=== PATIENT | male | born 1950 | race Caucasian/White ===

== ENCOUNTER → 2017-03-21 | Outpatient (CLI) | payer OTHER ==
[~2017-03-21] MED LIST: IOPAMIDOL (ISOVUE-300) 100 ML BTL ONE
== END ==
LOC: CIMAGING 13:10
PROVIDERS: ATTEND Family Medicine
DX: R19.00 Intra-abdominal and pelvic swelling, mass and lump, unspecified site (principal); K40.90 Unilateral inguinal hernia, without obstruction or gangrene, not specified as recurrent
CPT/HCPCS: 72193-PO; Q9967

== ENCOUNTER 2018-08-17 07:40 | Day surgery (SDC) | payer OTHER, MEDICARE ==
[2018-08-17] MEDS ORDERED: NS 1,000 ML IV ONE (07:41)
[2018-08-17] MEDS ORDERED: FAMOTIDINE 20 MG TAB PO ONE (07:41)
[2018-08-17] MEDS ORDERED: DIAZEPAM 5 MG TAB PO ONE (07:41)
[2018-08-17] MEDS ORDERED: diphenhydrAMINE 25 MG CAP PO ONE ×2 (07:41→08:05)
[2018-08-17] MEDS ORDERED: ASPIRIN EC 325 MG TAB PO ONE ×2 (07:41→08:05)
[2018-08-17] MEDS ORDERED: DIAZEPAM 5 MG TAB ONE (08:05)
[2018-08-17] MEDS ORDERED: FAMOTIDINE 20 MG TAB ONE (08:05)
--- NOTE | 2018-08-17 08:15 | PDHPUP ---
History & Physical Update H&P update statement: This history and physical update is based on an assessment of the patient which was completed after admission or registration (within 24 hours), but prior to the surgery/procedure. H&P update: H&P reviewed & patient examined, no change in patient's condition since H&P completed H&P changes: No changes to physical exam. Pending CT surgery on August 20 for aortic and mitral valves with possible ascending aortic work.
--- NOTE | 2018-08-17 08:15 | PDPROPOC ---
Sedation Plan of Care Sedation Plan of Care: vital signs stable, mental status noted, patient educated of risks, benefits, alternatives, patient can tolerate sedation ASA Classification: ASA 2 Planned drugs: fentanyl, midazolam Mallampati Score: Class 1 Mallampati Reference Image: Patient passed 3-3-2 rule?: Yes
[2018-08-17 08:22] LABS: PLATELET COUNT 203 10^3/uL (150-400)
[2018-08-17 08:31] LABS: INR 1.01 (0.83-1.16); PROTIME(PATIENT) 13.5 SEC (12.0-15.0)
[2018-08-17] MEDS ORDERED: LIDOCAINE 1% 300 MG/30 ML SDV ONE (08:53)
[2018-08-17] MEDS ORDERED: MIDAZOLAM 2 MG/2 ML VIAL ONE ×2 (08:54)
[2018-08-17] MEDS ORDERED: IOPAMIDOL (ISOVUE-370) 150 ML BTL IV ONE (08:54)
[2018-08-17] MEDS ORDERED: fentaNYL 100 MCG/2 ML INJ ONE (08:54)
[2018-08-17] MEDS ORDERED: ONDANSETRON 4 MG/2 ML VIAL IVP PRN (10:21)
[2018-08-17] MEDS ORDERED: OXYCODONE/APAP 5/325 TAB PO PRN (10:21)
[2018-08-17] MEDS ORDERED: ATROPINE SULFATE 1 MG/10 ML SYR IVP PRN (10:21)
[2018-08-17] MEDS ORDERED: HYDROCODONE/APAP 5/325 TAB PO PRN (10:21)
[2018-08-17] MEDS ORDERED: NITROGLYCERIN 0.4 MG BTL SL PRN (10:21)
--- NOTE | 2018-08-17 10:45 | PDDXCAT ---
Diagnostic Cath Note - . Date: 08/17/18 Warp Changer: Héctor Indication: other (preoperative for AVR and MVR) - Procedure Access: right groin Procedure: left heart catheterization, coronary angiography - Materials Left Heart Cath size: 6F Left Heart Cath materials: standard multipack (JL4, JR4, pigtail), JL5.0, JR5.0 , AR mod, Kaden's R - Findings-Left Heart Catheterization LM: Short, bifurcating into the LAD and LCX vessels. No luminal irregularities were noted. Medium diameter vessel. LAD: Medium diameter vessel with a large septal edge plugger and a single principal diagonal. No luminal irregularities were noted. LAD to the apex. LCX: Medium diameter vessel with a small OM1 and a large, principal OM2 which itself trifurcates into three branch vessels. No luminal irregularities were noted. RCA: Difficult to study given the anterior and superior take off. Non selective injections with supply to PDA and VAN (dominant vessel). No luminal irregularities were noted with multiple views EDP: not assessed LVEF: not assessed Wall motion: not assessed Complications: none Estimated blood loss: <50ml Closure method: Angioseal Assessment: Patient is a 68 y/o male with pending CT surgery (aortic and mitral valves) on Monday. No critical CAD was noted on this study. LV was not assessed given the pathology to the aortic valve. Plan: Maintain scheduled surgery in three days Intervention: none
--- NOTE | 2018-08-19 14:52 | CPEKG ---
Test Reason : OPEN Blood Pressure : / mmHG Vent. Rate : 041 BPM Atrial Rate : 000 BPM P-R Int : 362 ms QRS Dur : 095 ms QT Int : 504 ms P-R-T Axes : 008 045 040 degrees QTc Int : 417 ms Sinus bradycardia Ventricular premature complex Prolonged AL interval Left ventricular hypertrophy ST depr, consider ischemia, anterolateral lds Confirmed by Javid Lobo ([id number]) on 08/19/2018 2:51:49 PM Referred By: Confirmed By:Javid Lobo
== END 2018-08-17 13:30 | disposition home or self-care (01) ==
LOC: FCATH 07:40
PROVIDERS: ATTEND Internal Medicine Cardiovascular Disease
DX: Z01.810 Encounter for preprocedural cardiovascular examination (principal); I34.0 Nonrheumatic mitral (valve) insufficiency; I35.2 Nonrheumatic aortic (valve) stenosis with insufficiency; R42 Dizziness and giddiness; R06.09 Other forms of dyspnea; I10 Essential (primary) hypertension; R01.1 Cardiac murmur, unspecified; I77.9 Disorder of arteries and arterioles, unspecified; I44.7 Left bundle-branch block, unspecified; I71.2 Thoracic aortic aneurysm, without rupture; E56.9 Vitamin deficiency, unspecified; Z98.1 Arthrodesis status
CPT/HCPCS: C1760; J1200; J1644; J2250; J3010; Q9967

== ENCOUNTER 2018-08-20 07:15 | Inpatient (IN) | payer OTHER, MEDICARE ==
[~2018-08-20 07:15] MED LIST changes: +AMINOCAPROIC ACID 5 GM/20 ML VIAL IV ONE; -IOPAMIDOL (ISOVUE-300) 100 ML BTL ONE; +MANNITOL 25% 12.5 GM/50 ML VIAL IVP ONE; +PHENYLEPHRINE HCL 50 MG in NS 250 ML IV ONE
[2018-08-20] MEDS ORDERED: CARDIOPLEGIC SOLUTION 1,052.8 ML PF ONE (08:30)
[2018-08-20] MEDS ORDERED: MUPIROCIN 2% 22 GM OINT NS ONE (10:38)
[2018-08-20] MEDS ORDERED: ceFAZolin 2 GM/DEXTROSE 100 ML IV ONE (10:38)
[2018-08-20] MEDS ORDERED: CITRATE DEXTROSE SOLN 500 ML BAG MISC ONE (10:38)
[2018-08-20] MEDS ORDERED: LIDOCAINE 1% 2 ML INJ ID PRN (10:38)
[2018-08-20] MEDS ORDERED: niCARdipine/NACL 200 ML IV ONE (10:38)
[2018-08-20] MEDS ORDERED: LR 1,000 ML IV ONE (10:39)
--- NOTE | 2018-08-20 11:30 | PDHPUP ---
History & Physical Update H&P update statement: This history and physical update is based on an assessment of the patient which was completed after admission or registration (within 24 hours), but prior to the surgery/procedure. H&P update: H&P reviewed & patient examined, changes noted (CAD excluded by [facility] ; carotid US neg for hemodynamically sig stenosis; H/H , INR 1, Na 142, K 4.5, Cr 0.9, A1c 5.6%, O+ no antibodies )
[2018-08-20] MEDS ORDERED: CALCIUM CHLORIDE 1 GM/10 ML INJ ONE (11:52)
[2018-08-20] MEDS ORDERED: MILRINONE/DEXTROSE/100 ML BAG IV ONE (11:52)
[2018-08-20] MEDS ORDERED: PROTAMINE SULFATE 50 MG/5 ML VIAL IVP ONE (11:52)
[2018-08-20] MEDS ORDERED: ALBUMIN 5% 250 ML BOTTLE IV ONE ×2 (11:52→17:21)
[2018-08-20] MEDS ORDERED: DOPamine/DEXTROSE 400 MG/250 ML BAG IV ONE (11:53)
[2018-08-20] MEDS ORDERED: CITRATE DEXTROSE SOLN 500 ML BAG ONE (11:53)
[2018-08-20] MEDS ORDERED: NA BICARBONATE 50 MEQ/50 ML VIAL ONE (11:53)
[2018-08-20] MEDS ORDERED: LIDOCAINE 2% 100 MG/5 ML SYR ONE (11:53)
[2018-08-20] MEDS ORDERED: HEPARIN 10,000 UNIT/10 ML MDV (1,000 UNIT/ML) ONE (11:53)
[2018-08-20] MEDS ORDERED: ADENOSINE 6 MG/2 ML VIAL ONE (11:54)
[2018-08-20] MEDS ORDERED: AMIODARONE HCL 150 MG/3 ML VIAL ONE (11:54)
[2018-08-20] MEDS ORDERED: niCARdipine/NACL/200 ML BAG IV ONE (11:54)
[2018-08-20] MEDS ORDERED: MAGNESIUM SULFATE 1 GM/2 ML VIAL ONE (11:54)
[2018-08-20] MEDS ORDERED: methylPREDNISolone SOD SUCC 1 GM/8 ML VIAL ONE (11:55)
[2018-08-20] MEDS ORDERED: ceFAZolin 1 GM VIAL ONE (11:55)
[2018-08-20] MEDS ORDERED: NITROGLYCERIN/D5W 50 MG/250 ML BOTTLE IV ONE (11:55)
[2018-08-20] MEDS ORDERED: MINERAL OIL 10 ML VIAL ONE (11:56)
[2018-08-20] MEDS ORDERED: VERAPAMIL 5 MG/2 ML VIAL ONE (11:56)
[2018-08-20] MEDS ORDERED: PAPAVERINE HCL 60 MG/2 ML SDV ONE (11:56)
[2018-08-20] MEDS ORDERED: MIDAZOLAM 2 MG/2 ML VIAL ONE (13:21)
[2018-08-20] MEDS ORDERED: MIDAZOLAM 2 MG/2 ML VIAL IVP ONE (13:24)
--- NOTE | 2018-08-20 13:24 | PDANEPAE ---
ANE History of Present Illness 61 yo for avr/mr ANE Past Medical History - Cardiovascular History Hx Hypertension: Yes Hx Arrhythmias: No Hx Chest Pain: No Hx Coronary Artery / Peripheral Vascular Disease: No Hx CHF / Valvular Disease: Yes Hx Palpitations: No - Pulmonary History Hx COPD: No Hx Asthma/Reactive Airway Disease: No Hx Recent Upper Respiratory Infection: No Hx Oxygen in Use at Home: No Hx Sleep Apnea: No Sleep Apnea Screening Result - Last Documented: Positive Pulmonary History Comment: MARTY triggers - Neurologic History Hx Cerebrovascular Accident: No Hx Seizures: No Hx Dementia: No Neurologic History Comment: occasional right calf, glute numbness r/t back surgery - Endocrine History Hx Diabetes: No - Renal History Hx Renal Disorders: No - Liver History Hx Hepatic Disorders: No - Neurological & Psychiatric Hx Hx Neurological and Psychiatric Disorders: No - Cancer History Hx Cancer: Yes Cancer History Comment: small skin CA removal from back - Congenital Disorder History Hx Congenital Disorders: No - GI History Hx Gastrointestinal Disorders: No - Other Health History Other Health History: wears glasses. occasional tinitus - Chronic Pain History Chronic Pain: No - Surgical History Prior Surgeries: lumbar fusion, 32018. right hernia repair ANE Review of Systems Review of Systems: - Exercise capacity METS (RN): 5 METS ANE Patient History - Allergies Allergies/Adverse Reactions: No Known Allergies Allergy (Verified 08/13/18 11:03) - Home Medications Home medications: home medication list seen and reviewed Home Medications: Acetaminophen [Tylenol 325mg (*)] 650 mg PO DAILY PRN 08/10/18 [Last Taken 08/19] Ibuprofen [Motrin (*)] 400 mg PO DAILY PRN 08/10/18 [Last Taken 3 Days Ago ~12/03] LORazepam [Ativan (*)] 0.5 mg PO HS PRN 08/10/18 [Last Taken 08/19/18 21:00] amLODIPine BESYLATE [Amlodipine Besylate] 5 mg PO DAILY 08/10/18 [Last Taken 01/31 07:30] - NPO status NPO Status: no food or drink >8 hours NPO Since - Liquids (Date): 08/20/18 NPO Since - Liquids (Time): 07:00 NPO Since - Solids (Date): 08/19/18 NPO Since - Solids (Time): 19:00 - Anes Hx Anes Hx: no prior problems - Smoking Hx Smoking Status: Never smoked - Family Anes Hx Family Hx Anesthesia Complications: none ANE Labs/Vital Signs - Vital Signs Blood Pressure: 170/92 Heart Rate: 41 Respiratory Rate: 14 O2 Sat (%): 97 Height: 6 ft Weight: 74.843 kg ANE Physical Exam - Airway Neck exam: FROM Mallampati Score: Class 2 Mouth exam: normal dental/mouth exam - Pulmonary Pulmonary: no respiratory distress - Cardiovascular Cardiovascular: regular rate and rhythym - ASA Status ASA Status: III ANE Anesthesia Plan Anesthesia Plan: general endotracheal anesthesia Lines/Monitors: arterial line, central line, EVANGELINA
[2018-08-20] MEDS ORDERED: PROPOFOL/EMULSION 500 MG/50 ML BOTTLE IV ONE (13:30)
[2018-08-20] MEDS ORDERED: fentaNYL 100 MCG/2 ML INJ ONE (13:30)
[2018-08-20] MEDS ORDERED: REMIFENTANIL HCL 1 MG VIAL ONE (13:30)
[2018-08-20] MEDS ORDERED: DEXMEDETOMIDINE HCL 400 MCG in NS 100 ML IV SCH (13:30)
[2018-08-20] MEDS ORDERED: ROCURONIUM 100 MG/10 ML VIAL ONE (13:31)
[2018-08-20] MEDS ORDERED: DEXAMETHASONE 4 MG/ML VIAL ONE (13:34)
[2018-08-20] MEDS ORDERED: NOREPINEPHRINE BITARTRATE 16 MG in NS 250 ML IV ONE (14:00)
[2018-08-20] MEDS ORDERED: INSULIN REGULAR HUMAN 100 UNIT in NS 100 ML IV ONE (14:00)
[2018-08-20] MEDS ORDERED: SODIUM BICARBONATE 20 MEQ, LIDOCAINE 1% 10 ML in NORMOSOL-R 1,000 ML MISC ONE (14:00)
[2018-08-20] MEDS ORDERED: ONDANSETRON 4 MG/2 ML VIAL ONE (16:51)
[2018-08-20] MEDS ORDERED: SUGAMMADEX SODIUM 200 MG/2 ML VIAL IVP ONE (16:51)
[2018-08-20] MEDS ORDERED: BISACODYL 10 MG SUPP PR PRN (17:25)
[2018-08-20] MEDS ORDERED: LACTULOSE 20 GM/30 ML UDCUP PO PRN (17:25)
[2018-08-20] MEDS ORDERED: ONDANSETRON 4 MG/2 ML VIAL IVP PRN (17:25)
[2018-08-20] MEDS ORDERED: POTASSIUM Cl (KCl) 50 ML IV PRN (17:25)
[2018-08-20] MEDS ORDERED: niCARdipine/NACL 200 ML IV PRN (17:25)
[2018-08-20] MEDS ORDERED: POLYETHYLENE GLYCOL 3350 17 GM PKT PO PRN (17:25)
[2018-08-20] MEDS ORDERED: METOCLOPRAMIDE 10 MG/2 ML VIAL IVP PRN (17:25)
[2018-08-20] MEDS ORDERED: SODIUM CL NASAL 45 ML BTL EACHNARE PRN (17:25)
[2018-08-20] MEDS ORDERED: MEPERIDINE 25 MG/0.5 ML AMP IVP PRN (17:25)
[2018-08-20] MEDS ORDERED: fentaNYL 100 MCG/2 ML INJ IVP PRN (17:25)
[2018-08-20] MEDS ORDERED: MAGNESIUM HYDROXIDE 30 ML UDCUP PO PRN (17:25)
[2018-08-20] MEDS ORDERED: D50W 25 GM/50 ML SYR IVP PRN (17:25)
[2018-08-20] MEDS ORDERED: ONDANSETRON DISINTEGRATING 4 MG TAB PO PRN (17:25)
[2018-08-20] MEDS ORDERED: PANTOPRAZOLE SODIUM 40 MG VIAL IVP ONE (17:25)
[2018-08-20] MEDS ORDERED: INSULIN REGULAR HUMAN 100 UNIT in NS 100 ML IV SCH (17:30)
[2018-08-20] MEDS ORDERED: NS 1,000 ML IV SCH (17:30)
[2018-08-20] MEDS: KETOROLAC 15 MG/1 ML SDV IVP SCH ×2 (18:20→23:00)
--- NOTE | 2018-08-20 18:35 | GOP ---
DATE OF OPERATION: 08/20/2018 SURGEON: Javid Alonso DO SUPERVISOR [employer] PRODUCTION: Spring Harris, PAC. ANESTHESIOLOGIST: Lexie Doty MD. PREOPERATIVE DIAGNOSIS: 1. Severe mitral insufficiency. 2. Moderate severe aortic insufficiency. 3. Dilated ascending aorta. 4. History of recurrent palpitations, etiology uncertain. POSTOPERATIVE DIAGNOSIS: 1. Severe mitral insufficiency. 2. Moderate severe aortic insufficiency. 3. Dilated ascending aorta. 4. History of recurrent palpitations, etiology uncertain. PROCEDURE PERFORMED: 1. Aortic valve replacement with a #23 Inspiris aortic valve. 2. Mitral valve annuloplasty with a #30 Physio annuloplasty ring. 3. Bilateral pulmonary vein ablation. 4. Ligation of left atrial appendage with AtriClip. FINDINGS: Patient presented with decreased exercise tolerance, dyspnea on exertion, and evidence of dilating left ventricle and left atrium with uvxshlnw-[id number] mitral insufficiency and moderate-to- severe aortic insufficiency with a 4.5 cm ascending aorta on CAT scan. He was consented for surgery because of his frequent palpitations, although AFib was not documented in his markedly enlarged left atrium. We discussed the benefits of a pulmonary vein ablation, although strict criteria have not be en met. He was very adamant about trying to avoid atrial fibrillation, and that he had friends who h ad complications related to AFib and anticoagulants. For that reason, we agreed to proceed with PVI since it added no risk. DESCRIPTION OF PROCEDURE: He was consented for surgery, brought to the operating room, intubated. M onitoring lines were placed. He was prepped and draped in sterile classical manner. Sternotomy was performed. He was heparinized. Upon entering the sternum, he went into atrial fib with a slow ventr icular response. It should be noted the sinus rate was in the 30s upon entering the OR in sinus with frequent PACs. He was heparinized, cannulated in the transverse arch and bicaval cannulas. A retro grade catheter was placed as well. Antegrade cardioplegia was administered in a retrograde fashion b ecause of his aortic insufficiency using [place] Nido solution and topical hypothermia and systemic cooli ng. We then excised the ascending aorta, which was normal thickness but 4.6 cm in its widest segment at the sinotubular junction. He had some dilatation to his non coronary sinus and that was planned to be excised as part of the procedure. We excised down to within a centimeter of the anulus, leavin g area for the coronary buttons and excluding most of the sinus. The left and right were relatively normal in dimensions. He had a trileaflet valve that was heavily fenestrated. It was excised. I then proceeded with right and left pulmonary vein ablation with greater than 10 lesion sets perform ed with 3 overlapping, the 3rd of each one being less than 5 seconds in duration. I then placed a 35 mm AtriClip across the base of the left atrial appendage and excised the tip to confirm complete occ lusion. We then exposed the mitral valve through the right superior pulmonary vein. A retractor was placed. The valve was inspected. There was no elongation of any segment; however, he had significa nt posterior dilation with central regurgitation. Circumferential annuloplasty sutures were placed. We then sized the patient for a 30 mm ring, which was secured in place. A cleft between P2 and P3 w as closed with a single 5-0 Prolene [id number]-[id number] suture. Distention of the ventricle revealed no regurgitation. A methylene blue test revealed 8-10 mm of coaptation surface between anterior and pos terior leaflets. The left atrium was then closed. CO2 had been infused throughout the procedure. W e then placed a 23 mm Inspiris valve in a supra-annular position utilizing Cor-Knots. We then sized the patient for a 26 mm Hemashield graft which was fashioned in a bevel and sewn end-to-end between t he sinotubular junction at the base of the innominate artery. BioGlue was applied. The cross-clamp was then removed with suction on the ascending aortic vent in Trendelenburg and with an LV sump previ ously placed. When no further air was identified, he was weaned from bypass in Trendelenburg. An ec ho revealed excellent coaptation with no mitral regurgitation, preserved biventricular function, and good valvular function of the aortic valve without perivalvular leak. The heparin was reversed with protamine. The cannula was removed and oversewn. Two ventricular pacing wires, 2 mediastinal drains were placed. The thymic fat and pericardium were closed. Chest was closed in standard fashion. e patient was returned to ICU in stable condition. /[id number]/MODL
[2018-08-20] MEDS: ALBUMIN 5% 250 ML IV PRN (19:13)
[2018-08-20] MEDS: HYDROCODONE/APAP 5/325 TAB PO PRN (20:14)
[2018-08-20] MEDS: MUPIROCIN 2% 22 GM OINT NS SCH (20:29)
[2018-08-20] MEDS: ceFAZolin 2 GM/DEXTROSE 100 ML IV SCH (21:11)
[2018-08-20] MEDS: CEPACOL LOZENGE PO PRN (21:11)
[2018-08-21] MEDS: ALBUMIN 5% 250 ML IV PRN (00:09)
[2018-08-21] MEDS: HYDROCODONE/APAP 5/325 TAB PO PRN ×2 (00:55→05:19)
[2018-08-21 03:49] LABS: PLATELET COUNT 116 10^3/uL (150-400)
[2018-08-21 03:57] LABS: INR 1.31 (0.83-1.16); PROTIME(PATIENT) 16.5 SEC (12.0-15.0)
[2018-08-21] MEDS: KETOROLAC 15 MG/1 ML SDV IVP SCH ×4 (05:22→23:47)
[2018-08-21] MEDS: ceFAZolin 2 GM/DEXTROSE 100 ML IV SCH ×3 (05:22→21:13)
[2018-08-21] MEDS: HEPARIN 5,000 UNIT/0.5 ML INJ SC SCH ×3 (05:22→21:13)
[2018-08-21] MEDS ORDERED: ALBUMIN 5% 500 ML BOTTLE IV ONE (06:21)
[2018-08-21] MEDS ORDERED: ALBUMIN 5% 500 ML IV ONE (07:00)
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
--- NOTE | 2018-08-21 07:58 | POSTANESTH ---
Post Anesthetic Evaluation Cardiovascular Status: Normal, Stable Respiratory Status: Tx Decrease in SpO2 Level of Consciousness/Mental Status: Can Participate in Eval Pain Control: Adequate, Prn Tx Ordered Nausea/Vomiting Control: Adequate, Prn Tx Ordered Complications Possibly Related to Anesthesia: None Noted
--- NOTE | 2018-08-21 09:01 | ASMTCMCOM ---
CM Note CM Note Notes: 68yo male admitted for AAA, MR, AR, Afib, HTN. Has a Hx of lumbar fusion. Patient had a MVR, AVR, AAAR. Patient lives with his in [place]. Therapies to eval. May go to Cardiac Rehab on discharge. Date Signed: 08/21/2018 09:00 AM Electronically Signed By:Lily Rosenthal LCSW
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
[2018-08-21] MEDS: ASPIRIN 81 MG CHEWABLE TAB PO SCH (09:20)
[2018-08-21] MEDS: traMADol 50 MG TAB PO PRN (09:20)
[2018-08-21] MEDS: PANTOPRAZOLE SODIUM 40 MG TAB PO SCH (09:20)
[2018-08-21] MEDS: MUPIROCIN 2% 22 GM OINT NS SCH ×2 (10:24→21:18)
--- NOTE | 2018-08-21 11:35 | PDCARPN ---
Cardiology Progress Note Chief Complaint: None Assessment/Plan: Assessment: sp maze, MV repair, AV replacement Junctional rhythm Plan: POD #1, in junctional rhythm requiring intermittent pacing Plan to observe 48-72 h, if no improvement or if HD unstable, consider dual chamber pacemaker prior to dc. Discussed with pt and re. this. Will follow 08/21/18 11:33 Subjective: Asked to see pt d/t junctional rhythm post CTS Reviewed/Discussed With: family, multidisciplinary team Time Spent with Patient: greater than 25 minutes Time Spent with Patient: Greater than 25 minutes spent on this patients care, greater than 50% of time spent counseling, educating, and coordinating care regarding the above mentioned plan. Objective: Vital Signs (8 Hrs) Temp Pulse Resp BP Pulse Ox 08/21/18 10:00 41 L 16 84/47 L 98 08/21/18 09:00 52 L 17 80/49 L 100 08/21/18 08:00 36.6 C 90 20 105/74 99 08/21/18 07:00 90 14 83/49 L 99 08/21/18 06:00 90 16 83/55 L 97 08/21/18 05:00 90 15 104/73 98 08/21/18 04:00 90 14 101/69 99 Intake/Output (24 Hrs) 08/19/18 08/20/18 08/21/18 11:59 11:59 11:59 Intake Total 2065 Output Total 1555 Balance 510 Intake: Oral (ml) 500 IV Intake (ml) 1065 IV Infused (ml) 500 Albumin 5% 500 ml @ 0 mls 500 /hr IV ONCE ONE Rx#: [id number] Output: Urine (ml) 825 Catheter 825 Chest Tube Output (ml) 730 Location 1 730 Other: Weight 74.843 kg 77 kg Result Diagrams: 08/21/18 03:30 08/21/18 03:30 Telemetry: Junctional rhythm 40-45 bpm ICD10 Worksheet Patient Problems: Problems Problem Status Onset Status post circumferential ablation of pulmonary vein Acute ~08/20/18 S/P ascending aortic replacement Acute ~08/20/18 S/P aortic valve replacement with bioprosthetic valve Acute ~08/20/18 Status post mitral valve annuloplasty Acute ~08/20/18 Paroxysmal atrial fibrillation Acute Ascending aorta dilatation Chronic Mitral and aortic valve regurgitation Chronic
[2018-08-21] MEDS ORDERED: ALBUMIN 5% 250 ML BOTTLE IV ONE (13:16)
[2018-08-21] MEDS ORDERED: ALBUMIN 5% 250 ML IV ONE (13:30)
[2018-08-21] MEDS ORDERED: WARFARIN SODIUM 2.5 MG TAB PO SCH (16:00)
[2018-08-21] MEDS: SENNOSIDES/DOCUSATE SODIUM TAB PO SCH (21:13)
[2018-08-22] MEDS: HEPARIN 5,000 UNIT/0.5 ML INJ SC SCH (05:53)
[2018-08-22] MEDS: ceFAZolin 2 GM/DEXTROSE 100 ML IV SCH (05:53)
[2018-08-22] MEDS: traMADol 50 MG TAB PO PRN ×2 (05:58→14:57)
[2018-08-22 06:10] LABS: INR 1.4 (0.83-1.16); PROTIME(PATIENT) 17.3 SEC (12.0-15.0)
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
[2018-08-22] MEDS: CEPACOL LOZENGE PO PRN (07:24)
[2018-08-22] MEDS: ACETAMINOPHEN 325 MG TAB PO PRN ×3 (08:59→22:41)
[2018-08-22] MEDS: SENNOSIDES/DOCUSATE SODIUM TAB PO SCH ×2 (09:00→22:41)
[2018-08-22] MEDS: ASPIRIN 81 MG CHEWABLE TAB PO SCH (09:00)
[2018-08-22] MEDS: MUPIROCIN 2% 22 GM OINT NS SCH (09:01)
[2018-08-22] MEDS: PANTOPRAZOLE SODIUM 40 MG TAB PO SCH (09:03)
--- NOTE | 2018-08-22 10:40 | PDCARPN ---
Cardiology Progress Note Chief Complaint: POD day 2 s/p AVR with post-op junctional rhythm 40-55bpm. Assessment/Plan: Assessment: Mr. Rodriguez remains in junctional rhythm. HRs 55-62bpm since starting Dopamine this morning. Sp02 91% on 4L supplemental 02. He continues to note fatigue and nausea today. He has been unable to ambulate due to lightheadedness during several previous attempts. Plan: 1. EP service will continue to follow 2. Will continue to monitor underlying rhythm and will reevaluate need for PPM implant tomorrow 08/23. 08/22/18 10:38 08/22/18 10:42 Subjective: Patient reports persistent fatigue and intermittent nausea today. Reviewed/Discussed With: multidisciplinary team Objective: Vital Signs (8 Hrs) Temp Pulse Resp BP Pulse Ox 08/22/18 10:00 57 L 18 108/63 96 08/22/18 09:00 58 L 14 99/60 L 93 08/22/18 08:00 36.7 C 60 15 114/62 91 L 08/22/18 07:00 54 L 12 94/57 L 92 08/22/18 06:00 51 L 14 96/53 L 99 08/22/18 04:00 60 14 93/62 L 99 Intake/Output (24 Hrs) 08/21/18 08/22/18 08/23/18 05:59 05:59 05:59 Intake Total 1565 1350 Output Total 1555 300 Balance 10 1050 Intake: Oral (ml) 500 850 IV Intake (ml) 1065 IV Infused (ml) 500 Albumin 5% 500 ml @ 0 mls 500 /hr IV ONCE ONE Rx#: [id number] Output: Urine (ml) 825 Catheter 825 Chest Tube Output (ml) 730 300 Location 1 730 150 Location 2 150 Other: Weight 74.843 kg 77 kg Number of Voids Toilet 2 Result Diagrams: 08/22/18 05:55 08/22/18 05:55 Telemetry: Junctional rhythm 40-50bpm before starting Dopamine this morning, 55-62bpm since starting Dopamine. ICD10 Worksheet Patient Problems: Problems Problem Status Onset Paroxysmal atrial fibrillation Acute S/P aortic valve replacement with bioprosthetic valve Acute ~08/20/18 S/P ascending aortic replacement Acute ~08/20/18 Status post circumferential ablation of pulmonary vein Acute ~08/20/18 Status post mitral valve annuloplasty Acute ~08/20/18 Ascending aorta dilatation Chronic Mitral and aortic valve regurgitation Chronic
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
[2018-08-23] MEDS: ACETAMINOPHEN 325 MG TAB PO PRN ×2 (05:13→18:26)
[2018-08-23 05:38] LABS: INR 1.29 (0.83-1.16); PROTIME(PATIENT) 16.3 SEC (12.0-15.0)
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
--- NOTE | 2018-08-23 09:35 | PDCARPN ---
Cardiology Progress Note Chief Complaint: Junctional rhythm s/p AVR POD 3 Assessment/Plan: Assessment: Pacing via epicardial leads at 80bpm this morning. P-waves noted on telemetry, underlying rhythm demonstrated Wenckebach at 43-47bpm. Pacing rate decreased to 60bpm. Mr. Rodriguez was able to walk twice yesterday and reports feeling fairly well this morning aside from a mild persistent headache. Plan: 1. EP service will continue to follow. 2. Will continue to monitor underlying rhythm and will reevaluate need for PPM implant tomorrow 08/24. 08/23/18 09:31 Subjective: Mild headache this morning. Improved compared to yesterday. Reviewed/Discussed With: multidisciplinary team Objective: Vital Signs (8 Hrs) Pulse Resp BP Pulse Ox 08/23/18 06:00 52 L 16 104/62 97 08/23/18 04:00 53 L 12 108/64 99 08/23/18 02:00 53 L 16 110/68 99 Intake/Output (24 Hrs) 08/22/18 08/23/18 08/24/18 05:59 05:59 05:59 Intake Total 1350 1517 Output Total 300 240 Balance 1050 1277 Intake: Oral (ml) 850 1300 IV Infused (ml) 500 217 Albumin 5% 500 ml @ 0 mls 500 /hr IV ONCE ONE Rx#: [id number] DOPamine/DEXTROSE 250 ml 217 @ 2.5 MCG/KG/MIN 7.219 mls/hr IV CONT CRISSY Rx#: [id number] Output: Chest Tube Output (ml) 300 240 Location 1 150 130 Location 2 150 110 Other: Weight 77 kg 77.1 kg Number of Voids Toilet 2 1 Result Diagrams: 08/22/18 05:55 08/23/18 05:15 Telemetry: Initially, paced rhythm at 80bpm with intermittent p-waves noted on telemetry. Underlying rhythm Wenckebach. Pacing rate decreased to 80bpm. ICD10 Worksheet Patient Problems: Problems Problem Status Onset Paroxysmal atrial fibrillation Acute S/P aortic valve replacement with bioprosthetic valve Acute ~08/20/18 S/P ascending aortic replacement Acute ~08/20/18 Status post circumferential ablation of pulmonary vein Acute ~08/20/18 Status post mitral valve annuloplasty Acute ~08/20/18 Ascending aorta dilatation Chronic Mitral and aortic valve regurgitation Chronic
[2018-08-23] MEDS: traMADol 50 MG TAB PO PRN (09:54)
[2018-08-23] MEDS: PANTOPRAZOLE SODIUM 40 MG TAB PO SCH (09:54)
[2018-08-23] MEDS: SENNOSIDES/DOCUSATE SODIUM TAB PO SCH ×2 (09:55→20:09)
[2018-08-23] MEDS: ASPIRIN 81 MG CHEWABLE TAB PO SCH (09:55)
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
[2018-08-24 06:33] LABS: INR 1.28 (0.83-1.16); PROTIME(PATIENT) 16.2 SEC (12.0-15.0)
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
[2018-08-24] MEDS: ACETAMINOPHEN 325 MG TAB PO PRN ×3 (09:13→20:14)
[2018-08-24] MEDS: ASPIRIN 81 MG CHEWABLE TAB PO SCH (09:14)
[2018-08-24] MEDS: PANTOPRAZOLE SODIUM 40 MG TAB PO SCH (09:14)
[2018-08-24] MEDS: SENNOSIDES/DOCUSATE SODIUM TAB PO SCH ×2 (09:14→20:14)
--- NOTE | 2018-08-24 13:10 | ASMTCMCOM ---
CM Note CM Note Notes: Patient continues to make clinical progress. The plan is for pacemaker placement Monday 08/27. Therapies will continue to work with him, and Case Management will continue to evaluate his discharge needs. Ro is supportive and at bedside. Date Signed: 08/24/2018 01:10 PM Electronically Signed By:Margie Stockton RN
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
[2018-08-24] MEDS ORDERED: LORazepam 0.5 MG TAB PO PRN (19:12)
[2018-08-25] MEDS: SENNOSIDES/DOCUSATE SODIUM TAB PO SCH ×2 (07:24→21:00)
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
[2018-08-25] MEDS: ASPIRIN 81 MG CHEWABLE TAB PO SCH (09:40)
[2018-08-25] MEDS: PANTOPRAZOLE SODIUM 40 MG TAB PO SCH (09:40)
[2018-08-25] MEDS: ACETAMINOPHEN 325 MG TAB PO PRN ×2 (09:45→15:20)
[2018-08-25 09:47] LABS: PLATELET COUNT 178 10^3/uL (150-400)
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
[2018-08-26] MEDS: ACETAMINOPHEN 325 MG TAB PO PRN ×2 (06:20→12:31)
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
[2018-08-26] MEDS: SENNOSIDES/DOCUSATE SODIUM TAB PO SCH ×2 (08:20→20:36)
[2018-08-26] MEDS: ASPIRIN 81 MG CHEWABLE TAB PO SCH (08:21)
[2018-08-26] MEDS: PANTOPRAZOLE SODIUM 40 MG TAB PO SCH (08:21)
--- NOTE | 2018-08-26 10:19 | PDCARPN ---
Cardiology Progress Note Assessment/Plan: Status post bioprosthetic AVR and MV repair 08/20; now w/ CHB; no AV conduction w / pacer rate temporarily turned down to 50 bpm this a.m. - Will input orders for dual chamber pacer implant w/ Dr. Duarte for tomorrow. Time TBD. 08/26/18 10:23 Subjective: Trouble sleeping but o/w OK. Objective: Vital Signs (8 Hrs) Temp Pulse Resp BP Pulse Ox 08/26/18 08:00 36.6 C 80 20 106/69 93 08/26/18 06:00 80 20 136/91 H 94 08/26/18 04:00 36.2 C 80 18 101/71 96 Intake/Output (24 Hrs) 08/25/18 08/26/18 08/27/18 05:59 05:59 05:59 Intake Total 1450 1375 480 Output Total 625 Balance 825 1375 480 Intake: Oral (ml) 1450 1375 480 Output: Urine (ml) 625 Toilet 625 Other: Weight 78.381 kg Number of Voids Toilet 3 1 1 Number of Stools Toilet 2 1 Result Diagrams: 08/25/18 09:00 08/25/18 09:00 - Physical Exam Constitutional: no apparent distress Eyes: anicteric sclera Ears, Nose, Mouth, Throat: moist mucous membranes Cardiovascular: regular rate and rhythm, no murmurs, no gallops Respiratory: clear to auscultate bilat Gastrointestinal: normoactive bowel sounds, no tenderness, no masses Skin: no edema Psychiatric: not anxious ICD10 Worksheet Patient Problems: Problems Problem Status Onset Paroxysmal atrial fibrillation Acute S/P aortic valve replacement with bioprosthetic valve Acute ~08/20/18 S/P ascending aortic replacement Acute ~08/20/18 Status post circumferential ablation of pulmonary vein Acute ~08/20/18 Status post mitral valve annuloplasty Acute ~08/20/18 Ascending aorta dilatation Chronic Mitral and aortic valve regurgitation Chronic
[2018-08-26] MEDS: CEPACOL LOZENGE PO PRN ×2 (12:33→20:58)
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
[2018-08-26] MEDS: diphenhydrAMINE 25 MG CAP PO PRN (21:45)
[2018-08-27 05:08] LABS: INR 1.18 (0.83-1.16); PROTIME(PATIENT) 15.2 SEC (12.0-15.0)
[2018-08-27] MEDS ORDERED: BACITRACIN IRRIGATION/NS 50,000 UNITS/1,000 ML BTL IRR ONE ×2 (06:00→10:28)
[2018-08-27] MEDS ORDERED: ceFAZolin 2 GM/DEXTROSE 100 ML IV ONE ×2 (06:00→10:28)
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
[2018-08-27] MEDS: PANTOPRAZOLE SODIUM 40 MG TAB PO SCH (09:12)
[2018-08-27] MEDS: ASPIRIN 81 MG CHEWABLE TAB PO SCH (09:12)
[2018-08-27] MEDS: SENNOSIDES/DOCUSATE SODIUM TAB PO SCH ×2 (09:13→20:13)
[2018-08-27] MEDS ORDERED: LIDOCAINE 1% 300 MG/30 ML SDV ONE ×2 (09:57→13:01)
--- NOTE | 2018-08-27 10:28 | PDGENHP ---
History & Physical Chief Complaint: bradycardia Relevant Physical Exam: s1s2 rrr cta ao3 Cardiorespiratory Assessment: bradycardia post maze and mv repair. for pacemaker. Risks reviewed with patient and . [place] [facility] - they plan on assessing L pleural effusion with US today
--- NOTE | 2018-08-27 12:30 | ASMTCMCOM ---
CM Note CM Note Notes: Patient to get a pacemaker today. At this time PT recommending HC, OT = HM. Date Signed: 08/27/2018 12:29 PM Electronically Signed By:Lily Rosenthal LCSW
[2018-08-27] MEDS ORDERED: IOPAMIDOL (ISOVUE-300) 100 ML BTL ONE (13:01)
[2018-08-27] MEDS ORDERED: BUPIVACAINE 0.75% 10 ML SDV ONE (13:01)
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
--- NOTE | 2018-08-27 13:11 | POSTANESTH ---
Post Anesthetic Evaluation Cardiovascular Status: Normal, Stable Respiratory Status: Normal, Stable Level of Consciousness/Mental Status: Can Participate in Eval, Mildly Sleepy, Arousable Pain Control: Adequate, Prn Tx Ordered Nausea/Vomiting Control: Adequate, Prn Tx Ordered Complications Possibly Related to Anesthesia: None Noted
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
[2018-08-27] MEDS ORDERED: PROPOFOL/EMULSION 500 MG/50 ML BOTTLE IV ONE (13:17)
[2018-08-27] MEDS ORDERED: LIDOCAINE 2% 2 ML INJ ONE (13:17)
[2018-08-27] MEDS ORDERED: fentaNYL 100 MCG/2 ML INJ ONE (13:17)
[2018-08-27] MEDS ORDERED: ePHEDrine SULFATE 25 MG/5 ML SYR ONE ×2 (13:35→14:14)
[2018-08-27] MEDS ORDERED: PROPOFOL 200 MG/20 ML VIAL ONE (14:12)
[2018-08-27] MEDS ORDERED: ACETAMINOPHEN 500 MG TAB PO PRN (14:33)
[2018-08-27] MEDS ORDERED: ONDANSETRON 4 MG/2 ML VIAL IVP PRN (14:33)
[2018-08-27] MEDS ORDERED: fentaNYL 100 MCG/2 ML INJ IVP PRN (14:33)
[2018-08-27] MEDS ORDERED: NALOXONE HCL 0.4 MG/ML INJ IVP PRN (14:33)
[2018-08-27] MEDS ORDERED: LR 250 ML IV PRN (14:33)
[2018-08-27] MEDS ORDERED: ALBUTEROL 3 ML DEYVIAL IH PRN (14:33)
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
--- NOTE | 2018-08-27 15:32 | CPEKG ---
Test Reason : OPEN Blood Pressure : / mmHG Vent. Rate : 073 BPM Atrial Rate : 000 BPM P-R Int : 059 ms QRS Dur : 162 ms QT Int : 458 ms P-R-T Axes : -85 -40 088 degrees QTc Int : 505 ms A-V dual-paced rhythm with some inhibition Confirmed by Brayan Clark ([id number]) on 08/27/2018 3:32:07 PM Referred By: Confirmed By:Brayan Clark
[2018-08-27] MEDS ORDERED: WARFARIN SODIUM 5 MG TAB PO ONE (16:00)
[2018-08-27] MEDS: ACETAMINOPHEN 325 MG TAB PO PRN (18:06)
[2018-08-27] MEDS: CEPACOL LOZENGE PO PRN (20:13)
[2018-08-27] MEDS: diphenhydrAMINE 25 MG CAP PO PRN (21:53)
[2018-08-27] MEDS: HYDROCODONE/APAP 5/325 TAB PO PRN (21:53)
[2018-08-28] MEDS: HYDROCODONE/APAP 5/325 TAB PO PRN (02:09)
[2018-08-28 05:09] LABS: PLATELET COUNT 261 10^3/uL (150-400)
[2018-08-28 05:12] LABS: INR 1.26 (0.83-1.16)
[2018-08-28] MEDS: traMADol 50 MG TAB PO PRN (07:16)
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
--- NOTE | 2018-08-28 08:29 | PDCARPN ---
Cardiology Progress Note Chief Complaint: s/p dual-chamber PPM yesterday 08/28 Assessment/Plan: Assessment: 1. Status post implant of a dual-chamber PPM yesterday 08/28. Dressing is clean and dry. No hematoma, redness, swelling, or oozing to the PPM pocket. Mild tenderness. 2. POD D#8 s/p AVR and ascending aorta repair, MV annuplasty, and Maze 3. Pleural effusion - thoracentesis yesterday. CXR pending this morning. Plan: 1. Likely discharge home today pending CTS clearance and CXR results this morning. 2. Follow-up in device clinic in 1 week. 08/28/18 08:30 Subjective: Discomfort to left pectoral incision last night, markedly improved this morning. Otherwise, patent reports feeling "much better" overall. Reviewed/Discussed With: multidisciplinary team Time Spent with Patient: greater than 25 minutes Time Spent with Patient: Greater than 25 minutes spent on this patients care, greater than 50% of time spent counseling, educating, and coordinating care regarding the above mentioned plan. Objective: Vital Signs (8 Hrs) Temp Pulse Resp BP Pulse Ox 08/28/18 08:00 36.5 C 18 109/57 L 95 08/28/18 04:00 37.1 C 71 16 117/77 89 L Intake/Output (24 Hrs) 08/27/18 08/28/18 08/29/18 05:59 05:59 05:59 Intake Total 1448 2850 Output Total 1950 175 Balance 1448 900 -175 Intake: Oral (ml) 1448 2150 IV Intake (ml) 700 Output: Urine (ml) 600 175 Urinal 600 175 Thoracentesis 1350 Other: Weight 78.381 kg 76.7 kg Number of Voids Toilet 2 1 Urinal 1 1 Number of Stools Toilet 1 1 Result Diagrams: 08/28/18 03:20 08/28/18 03:20 Telemetry: A-V paced rhythm on telemetry overnight ICD10 Worksheet Patient Problems: Problems Problem Status Onset Paroxysmal atrial fibrillation Acute S/P aortic valve replacement with bioprosthetic valve Acute ~08/20/18 S/P ascending aortic replacement Acute ~08/20/18 Status post circumferential ablation of pulmonary vein Acute ~08/20/18 Status post mitral valve annuloplasty Acute ~11/05/18 Ascending aorta dilatation Chronic Mitral and aortic valve regurgitation Chronic
[2018-08-28] MEDS ORDERED: IBUPROFEN 200 MG TAB PO PRN (08:36)
[2018-08-28] MEDS: ASPIRIN 81 MG CHEWABLE TAB PO SCH (09:25)
[2018-08-28] MEDS: SENNOSIDES/DOCUSATE SODIUM TAB PO SCH (09:25)
[2018-08-28] MEDS: PANTOPRAZOLE SODIUM 40 MG TAB PO SCH (09:26)
--- NOTE | 2018-08-28 11:22 | CPEKG ---
Test Reason : OPEN Blood Pressure : / mmHG Vent. Rate : 070 BPM Atrial Rate : 070 BPM P-R Int : 199 ms QRS Dur : 157 ms QT Int : 449 ms P-R-T Axes : 105 -68 085 degrees QTc Int : 485 ms Atrial-ventricular dual-paced rhythm Confirmed by Brayan Clark ([id number]) on 08/28/2018 11:22:17 AM Referred By: Confirmed By:Brayan Clark
[2018-08-28 11:28] VITALS: BP 99/69
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
--- NOTE | 2018-08-28 12:37 | ASDISCHSUM ---
Discharge Information Plan Status:Home with No Needs Medically Cleared to Leave: Discharge Date: CM D/C Disposition:Home, Routine, Self-Care ADT D/C Disposition:Home, Routine, Self-Care Projected Discharge Date: Transportation at D/C:Family Discharge Delay Reason: Follow-Up Date: Discharge Slot: Final Diagnosis: Placement Information Patient Contact Information Contact Name:LETICIA Relationship: Address:[facility] Work Phone: City:[place] Alternate Phone: State/Zip Code:[place] [address] Email: Financial Information Financial Class:Medicare Primary Plan Desc:MEDICARE INPATIENT Primary Plan Number:[id number] Secondary Plan Desc:[employer]/M[employer] SUPPLEMENT Secondary Plan Number:[id number] Assessment Information LACE LACE Length of stay for Answers: 7-13 days current admission Acuity / Level of Answers: Yes Care: Did the patient have an inpatient admission? Comorbidities - select Answers: Congestive heart failure all that apply Other Notes: HTN # of Emergency department Answers: 0 visits in the last 6 months Score: 11 Date Signed: 08/28/2018 12:34 PM Electronically Signed By:Jackie Greene [facility] Progress Note CM Note CM Note Notes: 68yo male admitted for AAA, MR, AR, Afib, HTN. Has a Hx of lumbar fusion. Patient had a MVR, AVR, AAAR. Patient lives with his in [place]. Therapies to eval. May go to Cardiac Rehab on discharge. Date Signed: 08/21/2018 09:00 AM Electronically Signed By:Lily Rosenthal LCSW [facility] CM Progress Note CM Note CM Note Notes: Patient continues to make clinical progress. The plan is for pacemaker placement Monday 08/27. Therapies will continue to work with him, and Case Management will continue to evaluate his discharge needs. Ro is supportive and at bedside. Date Signed: 08/24/2018 01:10 PM Electronically Signed By:Margie Stockton RN [facility] CM Progress Note CM Note CM Note Notes: Patient to get a pacemaker today. At this time PT recommending HC, OT = HM. Date Signed: 08/27/2018 12:29 PM Electronically Signed By:Lily Rosenthal LCSW Intervention Information
[2018-08-28] MEDS: ACETAMINOPHEN 325 MG TAB PO PRN (14:33)
[2018-08-28] MEDS: CEPACOL LOZENGE PO PRN (14:34)
[2018-08-28] MEDS ORDERED: WARFARIN SODIUM 5 MG TAB PO SCH (16:00)
== END 2018-08-28 15:00 | disposition home or self-care (01) | DRG 220 ==
LOC: F2W 10:26 → F2N 13:21 → F2W 08-27 15:20
PROVIDERS: ADMIT Thoracic Surgery (Cardiothoracic Vascular Surgery); ATTEND Thoracic Surgery (Cardiothoracic Vascular Surgery)
PROC: 02L70CK Occlusion of Left Atrial Appendage with Extraluminal Device, Open Approach (ICD-10-PCS; principal; 2018-08-20 12:00)
PROC: 5A1221Z Performance of Cardiac Output, Continuous (ICD-10-PCS; principal; 2018-08-20 12:00)
PROC: 025S0ZZ Destruction of Right Pulmonary Vein, Open Approach (ICD-10-PCS; principal; 2018-08-20 12:00)
PROC: 02UG0JZ Supplement Mitral Valve with Synthetic Substitute, Open Approach (ICD-10-PCS; principal; 2018-08-20 12:00)
PROC: 02RF08Z Replacement of Aortic Valve with Zooplastic Tissue, Open Approach (ICD-10-PCS; principal; 2018-08-20 12:00)
PROC: 025T0ZZ Destruction of Left Pulmonary Vein, Open Approach (ICD-10-PCS; principal; 2018-08-20 12:00)
PROC: 0JH606Z Insertion of Pacemaker, Dual Chamber into Chest Subcutaneous Tissue and Fascia, Open Approach (ICD-10-PCS; 2018-08-27)
PROC: 02HK0JZ Insertion of Pacemaker Lead into Right Ventricle, Open Approach (ICD-10-PCS; 2018-08-27)
PROC: 02H63JZ Insertion of Pacemaker Lead into Right Atrium, Percutaneous Approach (ICD-10-PCS; 2018-08-27)
PROC: 0W9B3ZZ Drainage of Left Pleural Cavity, Percutaneous Approach (ICD-10-PCS; 2018-08-27)
DX: I08.0 Rheumatic disorders of both mitral and aortic valves (principal); D62 Acute posthemorrhagic anemia; J90 Pleural effusion, not elsewhere classified; I42.9 Cardiomyopathy, unspecified; I44.2 Atrioventricular block, complete; R00.1 Bradycardia, unspecified; I71.2 Thoracic aortic aneurysm, without rupture; I48.91 Unspecified atrial fibrillation; I10 Essential (primary) hypertension; G47.33 Obstructive sleep apnea (adult) (pediatric)
CPT/HCPCS: 82435-PO; 82565-PO; 82947-PO; 83605-PO; 84132-PO; 84295-PO; 84520-PO; 85014-PO; 97110-GP; 97116-GP; 97161-GP; 97165-GO; 97530-GO; 97535-GO; C1760; C1768; C1785; C1898; G8978-GP-CK; G8979-GP-CI; G8980-GP-CI; G8987-GO-CK; G8988-GO-CI; J0153; J0282; J0690; J1100; J1200; J1265; J1644; J1815; J1885; J2001; J2150; J2250; J2260; J2270; J2370; J2405; J2440; J2704; J2720; J2930; J3010; J3475; J3480; P9041; Q9967

== ENCOUNTER → 2018-09-11 | Outpatient (CLI) | payer OTHER, MEDICARE | LOC: FIMAGING 13:16 | PROVIDERS: ATTEND Thoracic Surgery (Cardiothoracic Vascular Surgery) | DX: J90 Pleural effusion, not elsewhere classified (principal); Z95.2 Presence of prosthetic heart valve; Z95.828 Presence of other vascular implants and grafts; J98.11 Atelectasis; I51.7 Cardiomegaly ==

== ENCOUNTER → 2019-01-11 | Outpatient (CLI) | payer OTHER, MEDICARE | LOC: CIMAGING 08:19 | PROVIDERS: ATTEND Physician Assistant Medical | DX: M48.07 Spinal stenosis, lumbosacral region (principal); M48.061 Spinal stenosis, lumbar region without neurogenic claudication; M46.96 Unspecified inflammatory spondylopathy, lumbar region; M51.16 Intervertebral disc disorders with radiculopathy, lumbar region; M51.25 Other intervertebral disc displacement, thoracolumbar region | CPT/HCPCS: 72131-PO ==

== ENCOUNTER → 2019-03-04 | Outpatient (CLI) | payer OTHER, MEDICARE | LOC: FIMAGING 14:33 | DX: M51.16 Intervertebral disc disorders with radiculopathy, lumbar region (principal); Z98.1 Arthrodesis status ==

== ENCOUNTER → 2019-03-19 | Outpatient (CLI) | payer OTHER, MEDICARE | LOC: CIMAGING 09:33 ==

== ENCOUNTER → 2019-03-22 | Outpatient (CLI) | payer OTHER, MEDICARE | LOC: FCP 07:58 ==